=== PATIENT | female | born 1970 | race Caucasian/White ===

== ENCOUNTER 2020-04-28 06:53 | Emergency (ER) | payer SELFPAY ==
[~2020-04-28] VITALS: Ht 157 cm; Wt 52.0 kg
[~2020-04-28 06:53] MED LIST: ALBU8.5H2 IH; ALPR.5T PO; ALPR0.5T7 PO; AMBIEN; AMOX-355 PO; BACL20TA PO; BCP PO; BUTA-234 PO; BUTA1TAB9 PO; CETI10TA17 PO; CHLO500T4 PO; ESCT10T PO; FLUT16SP22 NS; HYDR-3583 PO; HYDR-3729 PO; IBUP-1780 PO; NAPR-243 PO; NF-CYM60C; NITR-65 PO; NORE1TAB95 PO; OMEP40CA27 PO; OXYC-12 PO; OXYC-190 PO; OXYC-471 PO; PRD20T PO; RT-ALBUINH INH; SULF1TAB38 PO; TRAZ150T72; VORT10TA PO; VORT20TA PO
--- OUTSIDE RECORDS SUMMARY | 2020-04-28 07:00 | XMS REPORT ---
Author Author Paty Mott Organization [facility] Address [address] [place] [address] Care Team Providers Care Medical Staff Services Manager Name Role Phone JEREMY Mott Unavailable PROBLEMS Type Condition ICD9-CM Code [id number] Code Onset Dates Condition S tatus SNOMED Code Problem Major depressive disorder, recurrent episode, moderate 296 .32 Active [id number] ALLERGIES No Information ENCOUNTERS Encounter Location Date Diagnosis [place] [address] [address] [facility] [id number] [address] [place] [phone] Jun, Wellness examination Z00.00 [place] [address] [address] [place] [id number] [address] [place] [phone] Dec, [place] [address] [id number] [address] [place] [phone] Dec, [place] [address] [place] [id number] [address] [place] [phone] Dec, [facility] [address] [facility] [id number] [address] [place] [phone] Dec, [place] [address] [address] [place] [id number] [address] [place] [phone] Dec, [place] [address] [address] [facility] [place] [id number] [address] [place] [phone] Dec, IMMUNIZATIONS No Known Immunizations SOCIAL HISTORY Never Assessed REASON FOR VISIT PLAN OF CARE VITAL SIGNS MEDICATIONS No Known Medications RESULTS No Results PROCEDURES Procedure Date Ordered Result Body Site PSYTX PT&/FAMILY 45 MINUTES January 04, 2015 INSTRUCTIONS MEDICATIONS ADMINISTERED No Known Medications MEDICAL (GENERAL) HISTORY Type Description Date Medical History Mild intermittent asthma without complic ation Surgical History lasik Surgical History tubal ligation Surgical History cholecystectomy Surgical History carpal tunnel release Surgical History shoulder arthroscopy Surgical History trigger finger release Surgical History deviated septum repair Hospitalization History asthma/allergies
--- OUTSIDE RECORDS SUMMARY | 2020-04-28 07:00 | XMS REPORT ---
Author Author Paty Mott Organization [facility] Address [address] [place] [address] Care Team Providers Care Commercial Designer Name Role Phone EJREMY Mott Unavailable PROBLEMS Type Condition ICD9-CM Code [id number] Code Onset Dates Condition S tatus SNOMED Code Problem Major depressive disorder, recurrent episode, moderate 296 .32 Active [id number] ALLERGIES No Information ENCOUNTERS Encounter Location Date Diagnosis [facility] [address] [id number] [address] [place] [phone] Jun, Wellness examination Z00.00 [facility] [address] [id number] [address] [place] [phone] Dec, [facility] [address] [id number] [address] [place] [phone] Dec, [facility] [address] [id number] [address] [place] [phone] Dec, [facility] [address] [id number] [address] [place] [phone] Dec, [facility] [address] [id number] [address] [place] [phone] Dec, [facility] [address] [id number] [address] [place] [phone] Dec, IMMUNIZATIONS No Known Immunizations SOCIAL HISTORY Never Assessed REASON FOR VISIT PLAN OF CARE VITAL SIGNS MEDICATIONS No Known Medications RESULTS No Results PROCEDURES No Known procedures INSTRUCTIONS MEDICATIONS ADMINISTERED No Known Medications MEDICAL (GENERAL) HISTORY Type Description Date Medical History Mild intermittent asthma without complic ation Surgical History lasik Surgical History tubal ligation Surgical History cholecystectomy Surgical History carpal tunnel release Surgical History shoulder arthroscopy Surgical History trigger finger release Surgical History deviated septum repair Hospitalization History asthma/allergies
--- OUTSIDE RECORDS SUMMARY | 2020-04-28 07:00 | XMS REPORT ---
Author Author Paty Mott Organization [facility] Address [address] [place] [address] Care Team Providers Care Epic Anesthesia Analyst Name Role Phone JEREMY Mott Unavailable PROBLEMS Type Condition ICD9-CM Code [id number] Code Onset Dates Condition S tatus SNOMED Code Problem Major depressive disorder, recurrent episode, moderate 296 .32 Active [id number] ALLERGIES No Information ENCOUNTERS Encounter Location Date Diagnosis [place] [address] [address] [facility] [id number] [address] [place] [phone] Jun, Wellness examination Z00.00 [place] [address] [place] [id number] [address] [place] [phone] Dec, [place] [address] [id number] [address] [place] [phone] Dec, [place] [address] [place] [id number] [address] [place] [phone] Dec, [facility] [address] [place] [id number] [address] [place] [phone] Dec, [place] [address] [place] [id number] [address] [place] [phone] Dec, [place] [address] [facility] [id number] [address] [place] [phone] Dec, IMMUNIZATIONS No Known Immunizations SOCIAL HISTORY Never Assessed REASON FOR VISIT PLAN OF CARE VITAL SIGNS MEDICATIONS No Known Medications RESULTS No Results PROCEDURES Procedure Date Ordered Result Body Site PSYCH DIAGNOSTIC EVALUATION Dec 10, 2014 INSTRUCTIONS MEDICATIONS ADMINISTERED No Known Medications MEDICAL (GENERAL) HISTORY Type Description Date Medical History Mild intermittent asthma without complic ation Surgical History lasik Surgical History tubal ligation Surgical History cholecystectomy Surgical History carpal tunnel release Surgical History shoulder arthroscopy Surgical History trigger finger release Surgical History deviated septum repair Hospitalization History asthma/allergies
--- OUTSIDE RECORDS SUMMARY | 2020-04-28 07:00 | XMS REPORT ---
Author Author [facility] [employer] Address [address] [address] Care Team Providers Care Accordion Maker Name Role Phone KANDIS GIANG Unavailable NO, LOCAL PHYSICIAN Unavailable Unavailable BROWN, KANDIS Unavailable Unavailable BROWN, KANDIS Unavailable Unavailable BROWN, KANDIS Unavailable Unavailable JEREMY Mott Unavailable JEREMY Mott Unavailable JEREMY Mott Unavailable BROKOB, VIRGEN Unavailable Unavailable BROKOB, VIRGEN Unavailable Unavailable BROKOB, VIRGEN Unavailable Unavailable VILMA, AZRA Unavailable Unavailable VILMA, AZRA Unavailable Unavailable VILMA, AZRA Unavailable Unavailable Unavailable Unavailable Unavailable Unavailable Allergies Normalized Allergy Reported Date of Reaction(s) Care Provider Facility Allergy Type classification allergen Allergy Onset no information Unclassified NO KNOWN DRUG UNKNOWN [facility] (4 sources.) ALLERGIES [facility] ([id number]) Medications The data below is from unstructured sources No Known Medications No Known Medications No Known Medications No Known Medications No Known Medications No Known Medications No Known Medications No Known Medications No Known Medications No Known Medications Problems Problem Normalized Date Last Normalized Normalized Provider Fa cility Classification Problem(s) Recorded Problem Problem Sta tus Duration Anxiety Anxiety Chronic Active [facility] disorders (8 disorder, [facility] sources.) unspecified [place] Translations: [facility] ([id number]) [ ANXIETY STATE, UNSPECIFIED] Spondylosis; Low back pain Episodic Active [facility] intervertebral Translations: [facility] disc [ LUMBAGO] [place] disorders; [facility] ([id number]) other back problems (4 sources.) Residual Tobacco use Episodic Active [place] Hospit al codes; [facility] unclassified [place] (2 sources.) [facility] ([id number]) Substance-rela Tobacco use Chronic Active [facility] jonas disorders disorder [facility] (2 sources.) [facility] ([id number]) Procedures The data below is from unstructured sourcesNo known history of procedures. No Known procedures No Known procedures Immunizations The data below is from unstructured sourcesNo immunization records.No immunization records.No immunization records.No immunization records.No immunization records.No immunization records.No immunization records. No Known Immunizations No Known Immunizations No Known Immunizations No Known Immunizations No Known Immunizations No Known Immunizations Results The data below is from unstructured sourcesNo known relevant diagnostic tests, laboratory data and/or discharge summary. No Results No Results No Results No Results No Results No Results Vital Signs The data below is from unstructured sources Vital Response Date/Time Temperature (Fahrenheit) 98.1 degree s F (97.6 - 99.5) 06/23/2016 2:00pm Temperature (Calculated Celsius) 36. 01857 degrees C (36.4 - 37.5) 06/23/2016 2:00pm Temperature Source Tympanic 06/23/2016 2:00pm Pulse Rate (adult) 99 bpm (60 - 90) 06/23/2016 2:00pm Respiratory Rate 18 bpm (12 - 24) 06/23/2016 2:00pm O2 Sat by Pulse Oximetry 97 % (88 - 100) 06/23/2016 2:00pm Blood Pressure 146/72 mm Hg 06/23/2016 2:00pm Blood Pressure Mean 96 mm Hg 06/23/2016 2:00pm Pain Numeric Pain Scale 0-No Pain 06/23/2016 2:00pm Height (Feet) 5 feet 7:32pm Height (Inches) 3.00 inches 06/20/2016 7:32pm Height (Calculated Centimeters) 160. 514272 cm 06/20/2016 7:32pm Weight (Pounds) 115 pounds 06/20/2016 7:32pm Weight (Ounces) 0.0 oz 0 06/20/2016 7:32pm Weight (Calculated Grams) 72619.12 gm 06/20/2016 7:32pm Weight (Calculated Kilograms) 52.163 123 kilograms 06/20/2016 7:32pm Calculated BMI 20.4 06/02 7:32pm Capillary Refill Capillary Refill Less Than 3 Seconds 06/22/2016 8:00am Vital Response Date/Time Pulse Rate (adult) 94 bpm (60 - 90) 03/20/2016 9:13am O2 Sat by Pulse Oximetry 99 % (88 - 100) 03/20/2016 9:13am Blood Pressure 141/102 mm Hg 03/20/2016 9:13am Height (Feet) 5 feet 9:35am Height (Inches) 2.00 inches 03/20/2016 9:35am Height (Calculated Centimeters) 157. 605440 cm 03/20/2016 9:35am Weight (Pounds) 115 pounds 03/20/2016 9:35am Weight (Ounces) 0.0 oz 0 03/20/2016 9:35am Weight (Calculated Grams) 26707.123 gm 03/20/2016 9:35am Weight (Calculated Kilograms) 52.163 123 kilograms 03/20/2016 9:35am Calculated BMI 21.0 03/02 9:35am Vital Response Date/Time Temperature (Fahrenheit) 97.7 degree s F (97.6 - 99.5) 03/27/2016 1:00pm Temperature (Calculated Celsius) 36. 94193 degrees C (36.4 - 37.5) 03/27/2016 12:45pm Temperature Source Temporal 03/27/2016 1:00pm Pulse Rate (adult) 72 bpm (60 - 90) 03/27/2016 1:00pm Respiratory Rate 16 bpm (12 - 24) 03/27/2016 1:00pm O2 Sat by Pulse Oximetry 98 % (88 - 100) 03/27/2016 1:00pm Blood Pressure 144/95 mm Hg 03/27/2016 1:00pm Pain Pain Intensity 5 2015 12:45pm Height (Feet) 5 feet 8:55am Height (Inches) 2.00 inches 03/27/2016 8:55am Height (Calculated Centimeters) 157. 343779 cm 03/27/2016 8:55am Weight (Pounds) 115 pounds 03/27/2016 8:55am Weight (Ounces) 0.0 oz 0 03/27/2016 8:55am Weight (Calculated Grams) 74862.123 gm 03/27/2016 8:55am Weight (Calculated Kilograms) 52.163 123 kilograms 03/27/2016 8:55am Calculated BMI 19.13 8:55am Vital Response Date/Time Temperature (Fahrenheit) 97.9 degree s F (97.6 - 99.5) Temperature (Calculated Celsius) 36. 06487 degrees C (36.4 - 37.5) Temperature Source Temporal Pulse Rate (adult) 59 bpm (60 - 90) Respiratory Rate 16 bpm (12 - 24) O2 Sat by Pulse Oximetry 99 % (88 - 100) Blood Pressure 128/64 mm Hg Pain Pain Intensity 4 Height (Feet) 5 feet Height (Inches) 2.00 inches Height (Calculated Centimeters) 157. 473571 cm Weight (Pounds) 108 pounds Weight (Ounces) 0.0 oz Weight (Calculated Grams) 24549.976 gm Weight (Calculated Kilograms) 48.987 976 kilograms Calculated BMI 17.97 Interventions No Information Plan of Treatment The data below is from unstructured sources Discharge Date 06/23/16 2:45pm Disposition 01 HOME, SELF-CARE Instructions/Education Provided Acut e Abdominal Pain (ED) Prescriptions See Medication Section Referrals KANDIS GIANG MD (Unspec ified) - 06/30/16 Address: [facility] [address] [address] Reason(s) for Referral: APPT AT 3:30PM Care Plan and Goals See Discharge In structions Section Discharge Date 03/20/16 10:15am Prescriptions See Medication Section Discharge Date 03/27/16 1:00pm Instructions/Education Provided CHARLES THESIA INSTRUCTIONS POSTOP DR. SHARMA-SINUS SURGERY DR. SHARMA-NASAL IRRIGATION Prescriptions See Medication Section Goals No Information Social History No Information Functional Status The data below is from unstructured sources Query Response Date Elijah rded Patient Orientation Person Place Time Situation Eyes Open June 23, 2016 2:50pm Comprehension Ability Understands Co ncepts June 22, 2016 8:00pm Mental Status No Information Encounters Encounter Normalized Encounter Encounter Diagnosis Care Provi deandra Organization Date Type 08-10-2018 Patient encounter no information no name no or ganization name - procedure 08-11-2018 12-20-2017 Patient encounter no information no name no or ganization name - procedure 12-21-2017 03-05-2017 Patient encounter no information no name no or ganization name - procedure 03-06-2017 01-29-2017 Patient encounter no information no name no or ganization name - procedure 01-30-2017 01-14-2017 Patient encounter no information no name no or ganization name - procedure 01-15-2017 Medical Equipment No Information Payers Normalized Payer Value Self-pay no information Medicaid no information Advance Directives Directive Response Recor ded Date/Time Advance Directives No 7:21pm Health Care Power of Sorting And Folding Supervisor No 06/20/16 7:21pm Organ Donor Yes 06/20/16 7:21pm Resuscitation Status Full Code 06/20/16 7:21pm Directive Response Recor ded Date/Time Advance Directives No 9:13am Health Care Power of Sorting And Folding Supervisor No 03/20/16 9:13am Organ Donor Yes 03/20/16 9:13am Resuscitation Status Full Code 03/20/16 9:13am Directive Response Recor ded Date/Time Advance Directives No 8:55am Health Care Power of Sorting And Folding Supervisor No 03/27/16 8:55am Organ Donor Yes 03/27/16 8:55am Resuscitation Status Full Code 03/27/16 8:55am Directive Response Recor ded Date/Time Advance Directives No 10:00am Health Care Power of Sorting And Folding Supervisor No 05/31/15 10:00am Organ Donor Yes 05/31/15 10:00am Resuscitation Status Full Code 05/31/15 10:00am Discharge Instructions Patient Instructions Physician Instructions New, Converted or Re-Newed RX: Transmitted to Pharmacy Plan of Care/Instructions/FU: Take Macrobid twice daily for the next 10 days. Plenty of fluids. Activity as Tolerated: Yes Goal: Passage of remaining stone Clearance of urinary tract infection Discharge Diet: No Restrictions Return to The Hospital For: Recurrent pain/fever Other Inst to Patient Appointment to see Dr. Giang with UA in 1 week Pneu Vac Indicated: Yes Care Plan Patient Instructions:: Take Macrobid twice daily for the next 10 days.Plenty of fluids. Goal:: Passage of remaining stoneClearance of urinary tract infection No hospital discharge instructions.No hospital discharge instructions.No hospital discharge instructions. Additional Source Comments This clinical document has been generated using [employer] software that has been certified by the Office of the National Coordinator for Health Information Technology (ONC 15.99.04.3023.Diam.31.00.0.531417) and the National Committee for Gas Station Operator (NCQA, as an eMeasure certified technology). FOR RECORDS PERTAINING TO PATIENTS WHO ARE OR HAVE BEEN ENROLLED IN A CHEMICAL D EPENDENCY/SUBSTANCE ABUSE PROGRAM, SOME INFORMATION MAY BE OMITTED. This clinica l summary was aggregated from multiple sources. Caution should be exercised in using it in the provision of clinical care. This summary normalizes information from multiple sources, and as a consequence, information in this document may ma terially change the coding, format and clinical context of patient data. In moraima tion, data may be omitted in some cases. CLINICAL DECISIONS SHOULD BE BASED ON T HE PRIMARY CLINICAL RECORDS. [employer] provides no warranty or guara ntee of the accuracy or completeness of information in this document.The followi ng information is based on time limited clinical information UNRECOGNIZED CONTENT PROVIDED BELOW FOR UNRECOGNIZED SECTION MEDICAL (GENERAL) HISTORY Type Description Date Medical History Mild intermittent as thma without complication Surgical History lasik Surgical History tubal ligation Surgical History cholecystectomy Surgical History carpal tunnel release Surgical History shoulder arthroscopy Surgical History trigger finger release Surgical History deviated septum repair Hospitalization History asthma/allergies
--- OUTSIDE RECORDS SUMMARY | 2020-04-28 07:00 | XMS REPORT | Continuity of Care Document ---
Author Organization Unknown Address Unknown Phone Unavailable Allergies Active Description Code Type Severity Reaction Onset Reported/Identified Relationship to Patient Clinical Status Yes NO KNOWN DRUG ALLERGIES UNKNOWN UNKNOWN Yes NKANo Known Allergies NKA Miscellaneous Allergy Unknown N/A 09/29/2008 Medications There is no data. Problems Date Dx Coded Attending Type Code Diagnosis Diagnosed By 04/02/2010 Ot 831.04 04/02/2010 Ot 959.2 04/02/2010 Ot E000.8 04/02/2010 Ot E030 04/02/2010 Ot E849.4 04/02/2010 Ot E885.9 04/29/2010 Ot 831.04 04/29/2010 Ot E000.8 04/29/2010 Ot E002.0 04/29/2010 Ot E888.9 04/29/2010 Ot V57.1 01/28/2011 Ot 718.31 REC UR DISLOCAT- SHLDER 01/28/2011 Ot 727.43 RACHEL GLION NOS 09/23/2012 Ot 682.4 CELL ULITIS OF HAND 09/23/2012 Ot 729.5 PAIN IN LIMB 09/23/2012 Ot E000.8 OTH ER EXTERNAL CAUSE STATUS 09/23/2012 Ot E849.0 ACC IDENT IN HOME 09/23/2012 Ot E906.0 DOG BITE 11/22/2014 Ot 727.43 11/22/2014 Ot 831.04 11/22/2014 Ot E000.8 11/22/2014 Ot E928.9 11/22/2014 Ot V72.83 11/22/2014 Ot V74.8 11/22/2014 Ot V76.12 11/22/2014 Ot 211.3 11/22/2014 Ot 558.9 11/22/2014 Ot 569.3 11/22/2014 Ot V72.84 11/22/2014 Ot 793.89 11/22/2014 Ot V76.12 11/22/2014 Ot 793.89 12/04/2014 DIONICIO SCOTT MD Ot 723.4 12/05/2014 DIONICIO SCOTT MD Ot 723.4 12/10/2014 KAYLYNN MARTÍNEZ, JEREMY Avendano 296.32 MO DEPRESSIVE RECURRENT MODERATE 12/13/2014 RORO WATERMAN Ot 789.0 3 12/19/2014 DIONICIO SCOTT MD Ot 723.4 12/25/2014 RORO WATERMAN Ot 789.0 3 05/31/2015 DIONICIO SCOTT MD Ot 354.0 CARPAL TUNNEL SYNDROME 09/17/2015 DIONICIO SCOTT MD Ot M75.121 09/17/2015 DIONICIO SCOTT MD Ot M75.122 02/28/2016 Ot 727.43 RACHEL GLION NOS 02/28/2016 Ot 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 02/28/2016 Ot E000.8 OTH ER EXTERNAL CAUSE STATUS 02/28/2016 Ot E928.9 ACC IDENT NOS 02/28/2016 Ot V72.83 EXA M PRE- OPERATIVE NEC 02/28/2016 Ot V74.8 SCRE EN-BACTERIAL DIS NEC 02/28/2016 Ot V76.12 OTH SCREEN MAMMO- MALIGN NEOPLASM OF AGUILAR 02/28/2016 Ot 211.3 KETAN GN NEOPLASM LG BOWEL 02/28/2016 Ot 558.9 JEWELL NF GASTROENTERIT NEC 02/28/2016 Ot 569.3 RECT AL ANAL HEMORRHAGE 02/28/2016 Ot V72.84 EXA M PRE- OPERATIVE NOS 02/28/2016 Ot 793.89 OTH (ABN) FINDINGS ON RADIOLOGICAL EXAMI 02/28/2016 Ot V76.12 OTH SCREEN MAMMO- MALIGN NEOPLASM OF AGUILAR 02/28/2016 Ot 793.89 OTH (ABN) FINDINGS ON RADIOLOGICAL EXAMI 02/28/2016 DIONICIO SCOTT MD Ot 723.4 BRACHIAL NEURITIS NOS 02/28/2016 RORO WATERMAN Ot 789.0 3 ABDOMINAL PAIN, RIGHT LOWER QUADRANT 02/28/2016 DIOMEDES SANTIZO Ot 610.0 SOLITARY CYST OF BREAST 02/28/2016 DIONICIO SCOTT MD Ot 354.0 CARPAL TUNNEL SYNDROME 02/28/2016 DIONICIO SCOTT MD Ot V72.84 EXAM PRE-OPERATIVE NOS 02/28/2016 TYLER VINCENT, DIONICIO Meyers Ot M75.121 COMPLETE ROTATR-CUFF TEAR/RUPTR OF R JARAD 02/28/2016 DIONICIO SCOTT MD Ot M75.122 COMPLETE ROTATR-CUFF TEAR/RUPTR OF LEFT 03/02/2016 EDITH VINCENT, DIONICIO Meyers Ot J32 .9 CHRONIC SINUSITIS, UNSPECIFIED 03/02/2016 EDITH VINCENT, DIONICIO P Ot R51 HEADACHE 03/02/2016 DIONICIO SHARMA MD Ot J32 .9 CHRONIC SINUSITIS, UNSPECIFIED 03/02/2016 EDITH VINCENT, DIONICIO P Ot R51 HEADACHE 03/04/2016 EDITH VINCENT, DIONICIO Meyers Ot J32 .9 CHRONIC SINUSITIS, UNSPECIFIED 03/04/2016 EDITH VINCENT, DIONICIO P Ot R51 HEADACHE 03/04/2016 DIONICIO SHARMA MD Ot J32 .9 CHRONIC SINUSITIS, UNSPECIFIED 03/04/2016 EDITH VINCENT, DIONICIO P Ot R51 HEADACHE 03/17/2016 DIONICIO SHARMA MD P Ot J32 .9 CHRONIC SINUSITIS, UNSPECIFIED 03/17/2016 DIONICIO SHARMA MD P Ot R51 HEADACHE 03/20/2016 DIONICIO SHARMA MD P Ot J32 .9 CHRONIC SINUSITIS, UNSPECIFIED 03/20/2016 DIONICIO SHARMA MD Ot J34 .2 DEVIATED NASAL SEPTUM 03/20/2016 DIONICIO SHARMA MD Ot Z01.812 ENCOUNTER FOR PREPROCEDURAL LABORATORY E 03/20/2016 DIONICIO SHARMA MD Ot Z01.818 ENCOUNTER FOR OTHER PREPROCEDURAL EXAMIN 03/20/2016 DIONICIO SHARMA MD Ot Z11 .2 ENCOUNTER FOR SCREENING FOR OTHER BACTER 03/27/2016 DIONICIO SHARMA MD Ot J32 .9 CHRONIC SINUSITIS, UNSPECIFIED 03/27/2016 DIONICIO SHARMA MD Ot J34 .2 DEVIATED NASAL SEPTUM 06/23/2016 JENN GREENE MD Ot B96. 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 9 ANXIETY DISORDER, UNSPECIFIED 06/23/2016 JENN GREENE MD Ot G43.909 MIGRAINE, UNSP, NOT INTRACTABLE, WITHOUT 06/23/2016 JENN GREENE MD, Ot J45.909 UNSPECIFIED ASTHMA, UNCOMPLICATED 06/23/2016 JENN GREENE MD Ot K21. 9 GASTRO-ESOPHAGEAL REFLUX DISEASE WITHOUT 06/23/2016 JENN GREENE MD Ot N13. 2 HYDRONEPHROSIS WITH RENAL AND URETERAL C 06/23/2016 JENN GREENE MD, Ot N85. 2 HYPERTROPHY OF UTERUS 12/20/2017 W 300.00 ANX IETY STATE, UNSPECIFIED 12/20/2017 W F41.9 ANXI ETY DISORDER, UNSPECIFIED 08/10/2018 W 300.00 ANX IETY STATE, UNSPECIFIED 08/10/2018 W 305.1 TOBA [employer] USE DISORDER 08/10/2018 W 724.2 LUMBAGO 08/10/2018 W F41.9 ANXI ETY DISORDER, UNSPECIFIED 08/10/2018 W M54.5 LOW BACK PAIN 08/10/2018 W Z72.0 [employer]BA [employer] USE Procedures Code Description [place] [address] PS H DIAGNOSTIC EVALUATION 12/10/2014 Results Test Result Range Comprehensive metabolic panel - 06/20/16 16:22 Serum or plasma sodium measurement (moles/volume) 133 mmol/L 135-145 Serum or plasma potassium measurement (moles/volume) 3.8 mmol/L 3.6-5.0 Serum or plasma chloride measurement (moles/volume) 102 mmol/L 98-107 Carbon dioxide 22 mmol/L 21-32 Serum or plasma anion gap determination (moles/volume) 9 mmol/L 5-14 Serum or plasma urea nitrogen measurement (mass/volume ) 8 mg/dL 7-18 Serum or plasma creatinine measurement (mass/volume) 0.71 mg/dL 0.60-1.30 Serum or plasma urea nitrogen/creatinine mass ratio 11 NRG Serum or plasma creatinine measurement w ith calculation of estimated glomerular filtration rate > NRG Serum or plasma glucose measurement (mass/volume) 99 mg/dL 70-105 Serum or plasma calcium measurement (mass/volume) 8.7 mg/dL 8.5-10.1 Serum or plasma total bilirubin measurement (mass/volu me) 0.6 mg/dL 0.1-1.0 Serum or plasma alkaline phosphatase channing surement (enzymatic activity/volume) 97 U/L 40-136 Serum or plasma aspartate aminotransfera se measurement (enzymatic activity/volume) 19 U/L 5-34 Serum or plasma alanine aminotransferase measurement (enzymatic activity/volume) 19 U/L 0-55 Serum or plasma protein measurement (mass/volume) 6.3 g/dL 6.4-8.2 Serum or plasma albumin measurement (mass/volume) 3.8 g/dL 3.2-4.5 Serum or plasma ethanol measurement (mas s/volume) - 06/20/16 16:22 Serum or plasma ethanol measurement (mass/volume) < mg/dL <10 Complete blood count (CBC) with automate d white blood cell (WBC) differential - 06/20/16 16:22 Blood leukocytes automated count (number/volume) 22.6 10*3/uL 4.3-11.0 Blood erythrocytes automated count (number/volume) 4.19 10*6/uL 4.35-5.85 Venous blood hemoglobin measurement (mass/volume) 14.1 g/dL 11.5-16.0 Blood hematocrit (volume fraction) 41 % 35-52 Automated erythrocyte mean corpuscular volume 97 [ foz_us] 80-99 Automated erythrocyte mean corpuscular h emoglobin (mass per erythrocyte) 34 pg 25-34 Automated erythrocyte mean corpuscular h emoglobin concentration measurement (mass/volume) 35 g/dL 32-36 Automated erythrocyte distribution width ratio 11. 9 % 10.0- 14.5 Automated blood platelet count (count/volume) 240 10*3/uL 130-400 Automated blood platelet mean volume measurement 9.8 [foz_us] 7.4-10.4 Automated blood neutrophils/100 leukocytes 90 % 42-75 Automated blood lymphocytes/100 leukocytes 3 % 12-44 Blood monocytes/100 leukocytes 6 % 0-12 Automated blood eosinophils/100 leukocytes 0 % 0-10 Automated blood basophils/100 leukocytes 0 % 0-10 Blood neutrophils automated count (number/volume) 20.4 10*3 1.8-7.8 Blood lymphocytes automated count (number/volume) 0.7 10*3 1.0-4.0 Blood monocytes automated count (number/volume) 1. 4 10*3 0.0-1.0 Automated eosinophil count 0.0 10*3/uL 0 .0-0.3 Automated blood basophil count (count/volume) 0.0 10*3/uL 0.0-0.1 Blood manual differential performed dete ction - 06/20/16 16:22 Blood monocytes/100 leukocytes 6 % NRG Manual blood segmented neutrophils/100 leukocytes 92 % NRG Blood band neutrophils/100 leukocytes 0 % NRG Manual blood lymphocytes/100 leukocytes 2 % NRG Manual eosinophils/100 leukocytes in nose 0 % NRG Manual blood basophils/100 leukocytes 0 % NRG Blood erythrocyte morphology finding identification NORMAL NRG Complete urinalysis with reflex to cultu re - 06/20/16 16:57 Urine color determination YELLOW NRG Urine clarity determination VERY CLOUDY NRG Urine pH measurement by test strip 7 5-9 Specific gravity of urine by test strip 1.010 1.016-1.022 Urine protein assay by test strip, semi-quantitative 3+ NEGATIVE Urine glucose detection by automated test strip NE GATIVE NEGATIVE Erythrocytes detection in urine sediment by light micr oscopy 5+ NEGATIVE Urine ketones detection by automated test strip NE GATIVE NEGATIVE Urine nitrite detection by test strip POSITIVE NEGATIVE Urine total bilirubin detection by test strip NEGA TIVE NEGATIVE Urine urobilinogen measurement by automated test strip (mass/volume) NORMAL NORMAL Urine leukocyte esterase detection by dipstick 3+ NEGATIVE Automated urine sediment erythrocyte cou nt by microscopy (number/high power field) [HPF] NRG Automated urine sediment leukocyte count by microscopy (number/high power field) > [HPF] NRG Bacteria detection in urine sediment by light microsco py MODERATE NRG Squamous epithelial cells detection in u rine sediment by light microscopy 5-10 NRG Crystals detection in urine sediment by light microsco py NONE NRG Casts detection in urine sediment by light microscopy NONE NRG Mucus detection in urine sediment by light microscopy NEGATIVE NRG Complete urinalysis with reflex to culture YES NRG Urine drug screening test - 06/20/16 16: 57 Urine acetaminophen detection by screening method NEGATIVE NEGATIVE Urine phencyclidine detection by screening method NEGATIVE NEGATIVE Urine benzodiazepines detection by screening method POSITIVE NEGATIVE Urine cocaine detection NEGATIVE NEGATI VE Urine amphetamines detection by screening method P OSITIVE NEGATIVE Urine methamphetamine detection by screening method POSITIVE NEGATIVE Urine cannabinoids detection by screening method N EGATIVE NEGATIVE Urine opiates detection by screening method NEGATI VE NEGATIVE Urine barbiturates detection POSITIVE N EGATIVE Screening urine tricyclic antidepressants detection NEGATIVE NEGATIVE Urine methadone detection by screening method NEGA TIVE NEGATIVE Bacterial urine culture - 06/20/16 16:57 Bacterial urine culture [id number] NRG COLONY COUNT >100,000/ML NRG FTX;REPORTABLE SENSITIVITY REPORTED 06/21/16 16:40 NRG URINE CULTURE RESULTS PLUS NRG FREE TEXT ENTRY 2 UNUSUAL RESISTANCE PATTERN, ESBL NRG FREE TEXT ENTRY 3 IDENTIFIED NRG Bacterial susceptibility panel - 6 16:57 Gentamicin susceptibility test by minimum inhibitory c oncentration >= NRG Trimethoprim/sulfamethoxazole susceptibi lity test by minimum inhibitoryconcentration >= NRG Ampicillin susceptibility test by minimum inhibitory c oncentration >= NRG Tobramycin susceptibility test by minimum inhibitory c oncentration >= NRG Cefazolin susceptibility test by minimum inhibitory co ncentration >= NRG Ceftriaxone susceptibility test by minimum inhibitory concentration >= NRG Ampicillin/sulbactam susceptibility test by minimum inhibitory concentration >= NRG Ciprofloxacin susceptibility test by minimum inhibitor y concentration >= NRG Meropenem susceptibility test by minimum inhibitory co ncentration <= NRG Nitrofurantoin susceptibility test by mi nimum inhibitory concentration <= NRG Aztreonam susceptibility test by minimum inhibitory co ncentration >= NRG Extended spectrum beta lactamase (ESBL) producing bacteria susceptibility test by minimum inhibitory concentration + NRG Cefepime susceptibility test by minimum inhibitory con centration R NRG Amikacin susceptibility test by minimum inhibitory con centration 8 NRG Blood lactic acid measurement (moles/vol ume) - 06/20/16 17:15 Blood lactic acid measurement (moles/volume) 1.0 m mol/L 0.5- 2.0 Bacterial blood culture - 06/20/16 17:15 Bacterial blood culture NG NRG Bacterial blood culture - 06/20/16 17:20 Bacterial blood culture NG NRG Complete blood count (CBC) with automate d white blood cell (WBC) differential - 06/21/16 04:34 Blood leukocytes automated count (number/volume) 24.7 10*3/uL 4.3-11.0 Blood erythrocytes automated count (number/volume) 3.65 10*6/uL 4.35-5.85 Venous blood hemoglobin measurement (mass/volume) 12.2 g/dL 11.5-16.0 Blood hematocrit (volume fraction) 36 % 35-52 Automated erythrocyte mean corpuscular volume 98 [ foz_us] 80-99 Automated erythrocyte mean corpuscular h emoglobin (mass per erythrocyte) 33 pg 25-34 Automated erythrocyte mean corpuscular h emoglobin concentration measurement (mass/volume) 34 g/dL 32-36 Automated erythrocyte distribution width ratio 12. 0 % 10.0- 14.5 Automated blood platelet count (count/volume) 179 10*3/uL 130-400 Automated blood platelet mean volume measurement 10.3 [foz_us] 7.4-10.4 Automated blood neutrophils/100 leukocytes 88 % 42-75 Automated blood lymphocytes/100 leukocytes 5 % 12-44 Blood monocytes/100 leukocytes 7 % 0-12 Automated blood eosinophils/100 leukocytes 0 % 0-10 Automated blood basophils/100 leukocytes 0 % 0-10 Blood neutrophils automated count (number/volume) 21.7 10*3 1.8-7.8 Blood lymphocytes automated count (number/volume) 1.2 10*3 1.0-4.0 Blood monocytes automated count (number/volume) 1. 8 10*3 0.0-1.0 Automated eosinophil count 0.0 10*3/uL 0 .0-0.3 Automated blood basophil count (count/volume) 0.0 10*3/uL 0.0-0.1 Complete blood count (CBC) with automate d white blood cell (WBC) differential - 06/22/16 04:20 Blood leukocytes automated count (number/volume) 18.0 10*3/uL 4.3-11.0 Blood erythrocytes automated count (number/volume) 3.51 10*6/uL 4.35-5.85 Venous blood hemoglobin measurement (mass/volume) 11.6 g/dL 11.5-16.0 Blood hematocrit (volume fraction) 35 % 35-52 Automated erythrocyte mean corpuscular volume 99 [ foz_us] 80-99 Automated erythrocyte mean corpuscular h emoglobin (mass per erythrocyte) 33 pg 25-34 Automated erythrocyte mean corpuscular h emoglobin concentration measurement (mass/volume) 34 g/dL 32-36 Automated erythrocyte distribution width ratio 12. 4 % 10.0- 14.5 Automated blood platelet count (count/volume) 134 10*3/uL 130-400 Automated blood platelet mean volume measurement 9.8 [foz_us] 7.4-10.4 Automated blood neutrophils/100 leukocytes 89 % 42-75 Automated blood lymphocytes/100 leukocytes 7 % 12-44 Blood monocytes/100 leukocytes 4 % 0-12 Automated blood eosinophils/100 leukocytes 0 % 0-10 Automated blood basophils/100 leukocytes 0 % 0-10 Blood neutrophils automated count (number/volume) 16.0 10*3 1.8-7.8 Blood lymphocytes automated count (number/volume) 1.3 10*3 1.0-4.0 Blood monocytes automated count (number/volume) 0. 7 10*3 0.0-1.0 Automated eosinophil count 0.0 10*3/uL 0 .0-0.3 Automated blood basophil count (count/volume) 0.0 10*3/uL 0.0-0.1 Complete blood count (CBC) with automate d white blood cell (WBC) differential - 06/23/16 05:00 Blood leukocytes automated count (number/volume) 7.2 10*3/uL 4.3-11.0 Blood erythrocytes automated count (number/volume) 3.19 10*6/uL 4.35-5.85 Venous blood hemoglobin measurement (mass/volume) 10.7 g/dL 11.5-16.0 Blood hematocrit (volume fraction) 31 % 35-52 Automated erythrocyte mean corpuscular volume 96 [ foz_us] 80-99 Automated erythrocyte mean corpuscular h emoglobin (mass per erythrocyte) 34 pg 25-34 Automated erythrocyte mean corpuscular h emoglobin concentration measurement (mass/volume) 35 g/dL 32-36 Automated erythrocyte distribution width ratio 12. 0 % 10.0- 14.5 Automated blood platelet count (count/volume) 112 10*3/uL 130-400 Automated blood platelet mean volume measurement 10.1 [foz_us] 7.4-10.4 Automated blood neutrophils/100 leukocytes 83 % 42-75 Automated blood lymphocytes/100 leukocytes 10 % 12-44 Blood monocytes/100 leukocytes 7 % 0-12 Automated blood eosinophils/100 leukocytes 0 % 0-10 Automated blood basophils/100 leukocytes 0 % 0-10 Blood neutrophils automated count (number/volume) 6.0 10*3 1.8-7.8 Blood lymphocytes automated count (number/volume) 0.7 10*3 1.0-4.0 Blood monocytes automated count (number/volume) 0. 5 10*3 0.0-1.0 Automated eosinophil count 0.0 10*3/uL 0 .0-0.3 Automated blood basophil count (count/volume) 0.0 10*3/uL 0.0-0.1 Comprehensive metabolic panel - 06/23/16 05:00 Serum or plasma sodium measurement (moles/volume) 136 mmol/L 135-145 Serum or plasma potassium measurement (moles/volume) 2.8 mmol/L 3.6-5.0 Serum or plasma chloride measurement (moles/volume) 106 mmol/L 98-107 Carbon dioxide 20 mmol/L 21-32 Serum or plasma anion gap determination (moles/volume) 10 mmol/L 5-14 Serum or plasma urea nitrogen measurement (mass/volume ) 5 mg/dL 7-18 Serum or plasma creatinine measurement (mass/volume) 0.61 mg/dL 0.60-1.30 Serum or plasma urea nitrogen/creatinine mass ratio 8 NRG Serum or plasma creatinine measurement w ith calculation of estimated glomerular filtration rate > NRG Serum or plasma glucose measurement (mass/volume) 106 mg/dL 70-105 Serum or plasma calcium measurement (mass/volume) 8.1 mg/dL 8.5-10.1 Serum or plasma total bilirubin measurement (mass/volu me) 0.2 mg/dL 0.1-1.0 Serum or plasma alkaline phosphatase channing surement (enzymatic activity/volume) 82 U/L 40-136 Serum or plasma aspartate aminotransfera se measurement (enzymatic activity/volume) 37 U/L 5-34 Serum or plasma alanine aminotransferase measurement (enzymatic activity/volume) 49 U/L 0-55 Serum or plasma protein measurement (mass/volume) 5.0 g/dL 6.4-8.2 Serum or plasma albumin measurement (mass/volume) 2.8 g/dL 3.2-4.5 Sed Rate - 01/29/17 17:15 Sed Rate 5 mm/hr 9-15 Thyroid Stimulating Hormone - 01/29/17 1 7:15 TSH 1.29 mIU/mL 0.32-5.00 Encounters ACCT No. Visit Date/Time Discharge Status Pt. Type Provider Facility Loc./Unit Complaint [id number] 12/10/2014 10:54:00 12/10/2014 23:59: 59 CLS Outpatient JEREMY BOOTH [id number] 03/05/2017 11:13:00 03/05/2017 23:59: 00 DIS Outpatient BRAYDEN YAO [id number] 01/29/2017 17:15:00 01/29/2017 23:59: 00 DIS Outpatient Reji Giang [id number] 01/14/2017 15:47:00 01/14/2017 23:59: 00 DIS Outpatient Reji Giang [id number] 08/10/2018 13:58:00 Document Registration [id number] 12/20/2017 10:06:00 Document Registration [id number] 06/20/2016 18:06:00 14:45:00 DIS Inpatient JC VINCENT, JENN Craig [facility] 4TH PYELONEPHRITIS,RECENT L EFT URETERAL STARE [id number] 03/27/2016 08:20:00 13:00:00 DIS Outpatient DIONICIO SHARMA MD [facility] [id number] 03/20/2016 09:10:00 016 10:15:00 DIS Outpatient DIONICIO SHARMA MD [facility] PREOP [id number] 02/28/2016 10:14:00 016 23:59:59 CLS Outpatient DIONICIO SHARMA MD [facility] RAD [id number] 08/26/2015 16:15:00 23:59:59 CLS Outpatient DIONICIO SCOTT MD [facility] RAD [id number] 05/31/2015 09:22:00 13:55:00 DIS Outpatient DIONICIO SCOTT MD [facility] [id number] 05/30/2015 09:21:00 23:59:59 CLS Outpatient DIONICIO SCOTT MD [facility] PREOP [id number] 12/12/2014 10:29:00 015 23:59:59 CLS Outpatient DIOMEDES SANTIZO [facility] RAD [id number] 12/12/2014 10:22:00 23:59:59 CLS Outpatient RORO WATERMAN [facility] RAD [id number] 12/03/2014 11:09:00 015 23:59:59 CLS Outpatient TYLER VINCENT, DIONICIO Meyers [facility] RAD [id number] 04/28/2020 06:55:[address] Emergency LYUDMILA VINCENT, IRWIN Kiran [facility] ER R SIDE ABD PAIN [id number] 11/21/2012 07:52:00 Document Registration [id number] 10/31/2012 10:10:00 Document Registration [id number] 09/23/2012 20:29:00 Document Registration [id number] 06/17/2012 11:55:00 Document Registration [id number] 06/16/2012 07:18:00 Document Registration [id number] 10/30/2011 09:15:00 Document Registration [id number] 01/28/2011 05:44:00 Document Registration [id number] 01/20/2011 08:42:00 Document Registration [id number] 04/14/2010 11:06:00 Document Registration [id number] 04/02/2010 06:20:00 Document Registration
--- NOTE | 2020-04-28 07:25 | ED Abdominal Pain ---
General Chief Complaint: Abdominal/GI Problems Stated Complaint: R SIDE ABD PAIN Source of Information: Patient Exam Limitations: No Limitations (VANNESA CAPUTO,) History of Present Illness Date Seen by Provider: Apr 28, 2020 Time Seen by Provider: 07:05 Initial Comments Ms. Vogel is here to ER regarding abdominal and back pain that started 1 day ago (04/27). She says the pain has been increasing and for the last few hours she hasn't been able to breathe. She localizes the pain to the RLQ and R flank. She states the pain is sharp and rates it a 12-13/10 on the pain scale. She does not note anything that improves the pain, but notices it is worse when moving, laying down, breathing, and during her car ride to the ER. She denies any nausea, vomiting, change in bowel movements, or blood in her urine. Her last bowel movement was between 2474-9810 last night and she says it was normal. She does admit to chest pain 1 hour prior to arrival, but when localized, she points to her mid back. She also admits to shortness of breath relating to the pain only. She also admits to blurry vision that is attributed to lack of sleep overnight. Her last meal was 2 hours ago. Timing/Duration: 24 Hours Severity/Quality: Severe Location: RLQ Radiation: Back, Chest (localized to mid upper back) Modifying Factors: Improves With Analgesics (did not help much); Worsens With Breathing, Worsens With Lying down, Worsens With Movement, Worsens With Urinating Associated Symptoms: No Nausea/Vomiting, No Shortness of Air, No Weakness (VANNESA CAPUTO,) Allergies and Home Medications Allergies Coded Allergies: NKANo Known Allergies (Verified Allergy, Unknown, 09/29/08) Home Medications Albuterol Sulfate 8.5 Gm Hfa.aer.ad, 2 PUFF INH Q4H PRN for SHORTNESS OF BREATH, (Reported) Alprazolam 0.5 Mg Tablet, 0.5 MG PO TID PRN for ANXIETY, (Reported) Baclofen 20 Mg Tablet, 20 MG PO TID PRN for MUSCLE SPASMS, (Reported) Butalb/Acetaminophen/Caffeine 1 Each Tablet, 1-2 TAB PO BID PRN for MIGRAINE, (Reported) Cetirizine HCl 10 Mg Tablet, 10 MG PO DAILY, (Reported) Fluticasone Propionate 16 Gm [place].susp, 2 SPRAYS NS DAILY PRN for CONGESTION, (Reported) Ibuprofen 800 Mg Tablet, 800 MG PO TID PRN for PAIN, (Reported) Nitrofurantoin Monohyd/M-Cryst 100 Mg Capsule, 1 TAB PO BID Prescribed by: JOSSY QUACH on 06/23/16 1309 Norethindrone-E.estradiol-Iron 1 Each Tablet, 1 TAB PO DAILY, (Reported) Patient Home Medication List Home Medication List Reviewed: Yes (VANNESA CAPUTO,) Review of Systems Review of Systems Constitutional: No weakness EENTM: Blurred Vision (due to lack of sleep) Cardiovascular: Chest Pain Gastrointestinal: Abdominal Pain; Denies Blood Streaked Stools, Denies Diarrhea, Denies Nausea, Denies Vomiting Genitourinary: Denies Burning; Flank Pain Skin: no symptoms reported Psychiatric/Neurological: No Symptoms Reported Endocrine: No Symptoms Reported Hematologic/Lymphatic: No Symptoms Reported (VANNESA CAPUTO,) Past Jrgnjsn-Oevdcx-Gkeycy Hx Patient Social History Alcohol Beverage of Choice: Beer Recreational Drug Use: Yes Drug of Choice: meth and marijuana a few days ago Smoking Status: Current Everyday Smoker Type Used: Cigarettes (<0.5 ppd) Recent Hopitalizations: Yes ([facility] 2003) (VANNESA CAPUTO,) Immunizations Up To Date Tetanus Booster (TDap): Unknown PED Vaccines UTD: Yes (VANNESA CAPUTO,) Seasonal Allergies Seasonal Allergies: No (VANNESA CAPUTO,) Past Medical History Surgeries: Yes Eye Surgery (laser), Gallbladder, Nose (perforated septum repair), Orthopedic (bilateral carpal tunnel with repeat, bilateral shoulder, R ACL, trigger finger), Tubal Ligation Respiratory: Yes Asthma Cardiac: No Neurological: No : No Last Menstrual Period: Apr 17, 2020 Reproductive Disorders: No Female Reproductive Disorders: Denies Sexually Transmitted Disease: Yes (GENITAL WARTS AT AGE 19) HIV/AIDS: No Kidney Stones (in 2016) Gastroesophageal Reflux, Irritable Bowel Arthritis, Chronic Back Pain Loss of Vision: Denies Hearing Impairment: Denies Anxiety Adverse Reaction/Blood Tranf: No (VANNESA CAPUTO,) Family Medical History Alcoholism G8 BROTHER Physical Exam Vital Signs Vital Signs - First Documented 04/28/20 07:22 Temp 36.7 Pulse 84 Resp 14 B/P (MAP) 146/90 (108) Pulse Ox 98 O2 Delivery Room Air (IRWIN COREAS MD) Vital Signs Capillary Refill : (VANNESA CAPUTO,) Height/Weight/BMI Height: 5'3.00" Weight: 115lbs. 0.0oz. 52.398275pr; 20.4 BMI Method:Stated General Appearance: WD/WN, moderate distress HEENT: PERRL/EOMI Neck: non-tender, full range of motion Respiratory: lungs clear, no respiratory distress Cardiovascular: regular rate, rhythm, no murmur Gastrointestinal: normal bowel sounds, guarding, tenderness, other (positive Pete and Rovsing's signs) Extremities: normal range of motion Neurologic/Psychiatric: alert, normal mood/affect Skin: normal color, warm/dry (VANNESA CAPUTO,) Progress/Results/Core Measures Results/Orders Lab Results Laboratory Tests Test 04/28/20 07:19 04/28/20 08:21 Range/Units White Blood Count 8.8 4.3-11.0 10^3/uL Red Blood Count 4.29 L 4.35-5.85 10^6/uL Hemoglobin 13.3 11.5-16.0 G/DL Hematocrit 40 35-52 % Mean Corpuscular Volume 93 80-99 FL Mean Corpuscular Hemoglobin 31 25-34 PG Mean Corpuscular Hemoglobin Concent 34 32-36 G/DL Red Cell Distribution Width 13.4 10.0-14.5 % Platelet Count 379 130-400 10^3/uL Mean Platelet Volume 9.3 7.4-10.4 FL Neutrophils (%) (Auto) 48 42-75 % Lymphocytes (%) (Auto) 41 12-44 % Monocytes (%) (Auto) 9 0-12 % Eosinophils (%) (Auto) 1 0-10 % Basophils (%) (Auto) 1 0-10 % Neutrophils # (Auto) 4.3 1.8-7.8 X 10^3 Lymphocytes # (Auto) 3.6 1.0-4.0 X 10^3 Monocytes # (Auto) 0.8 0.0-1.0 X 10^3 Eosinophils # (Auto) 0.1 0.0-0.3 10^3/uL Basophils # (Auto) 0.1 0.0-0.1 10^3/uL Sodium Level 139 135-145 MMOL/L Potassium Level 3.7 3.6-5.0 MMOL/L Chloride Level 102 98-107 MMOL/L Carbon Dioxide Level 27 21-32 MMOL/L Anion Gap 10 5-14 MMOL/L Blood Urea Nitrogen 13 7-18 MG/DL Creatinine 0.72 0.60-1.30 MG/DL Estimat Glomerular Filtration Rate > 60 BUN/Creatinine Ratio 18 Glucose Level 102 70-105 MG/DL Calcium Level 9.8 8.5-10.1 MG/DL Corrected Calcium 9.7 8.5-10.1 MG/DL Total Bilirubin 0.3 0.1-1.0 MG/DL Aspartate Amino Transf (AST/SGOT) 23 5-34 U/L Alanine Aminotransferase (ALT/SGPT) 27 0-55 U/L Alkaline Phosphatase 98 40-136 U/L C-Reactive Protein High Sensitivity 0.24 0.00-0.50 MG/DL Total Protein 8.0 6.4-8.2 GM/DL Albumin 4.1 3.2-4.5 GM/DL Lipase 40 8-78 U/L Serum Test, Qualitative NEGATIVE NEGATIVE Urine Color YELLOW Urine Clarity SL CLOUDY Urine pH 8.0 5-9 Urine Specific [place] 1.015 L 1.016-1.022 Urine Protein NEGATIVE NEGATIVE Urine Glucose (UA) NEGATIVE NEGATIVE Urine Ketones NEGATIVE NEGATIVE Urine Nitrite NEGATIVE NEGATIVE Urine Bilirubin NEGATIVE NEGATIVE Urine Urobilinogen 0.2 < = 1.0 MG/DL Urine Leukocyte Esterase NEGATIVE NEGATIVE Urine RBC (Auto) NEGATIVE NEGATIVE Urine RBC NONE /HPF Urine WBC RARE /HPF Urine Squamous Epithelial Cells 5-10 /HPF Urine Crystals NONE /LPF Urine Amorphous Sediment LARGE MARK PHOSPHATE H /LPF Urine Bacteria TRACE /HPF Urine Casts NONE /LPF Urine Mucus NEGATIVE /LPF Urine Culture Indicated NO Urine Opiates Screen NEGATIVE NEGATIVE Urine Oxycodone Screen NEGATIVE NEGATIVE Urine Methadone Screen NEGATIVE NEGATIVE Urine Propoxyphene Screen NEGATIVE NEGATIVE Urine Barbiturates Screen NEGATIVE NEGATIVE Ur Tricyclic Antidepressants Screen NEGATIVE NEGATIVE Urine Phencyclidine Screen NEGATIVE NEGATIVE Urine Amphetamines Screen POSITIVE H NEGATIVE Urine Methamphetamines Screen NEGATIVE NEGATIVE Urine Benzodiazepines Screen NEGATIVE NEGATIVE Urine Cocaine Screen NEGATIVE NEGATIVE Urine Cannabinoids Screen NEGATIVE NEGATIVE (IRWIN COREAS MD) My Orders Orders - IRWIN COREAS MD Ua Culture If Indicated (04/28/20 06:57) Ed Iv/Invasive Line Start (04/28/20 07:30) Ns Iv 1000 Ml (Sodium Chloride 0.9%) (04/28/20 07:30) Cbc With Automated Diff (04/28/20 07:30) Comprehensive Metabolic Panel (04/28/20 07:30) Hs C Reactive Protein (04/28/20 07:30) Lipase (04/28/20 07:30) Drug Screen Stat (Urine) (04/28/20 07:30) Hcg,Qualitative Serum (04/28/20 07:38) Fentanyl Injection (Sublimaze Injection (04/28/20 08:00) Fentanyl Injection (Sublimaze Injection (04/28/20 08:45) Ct Abdomen/Pelvis W (04/28/20 09:03) Iohexol Injection (Omnipaque 350 Mg/Ml 1 (04/28/20 09:15) Received Contrast (Hold Metformin- Contr (04/28/20 09:15) Ns (Ivpb) (Sodium Chloride 0.9% Ivpb Bag (04/28/20 09:15) Ketorolac Injection (Toradol Injection) (04/28/20 10:15) Fentanyl Injection (Sublimaze Injection (04/28/20 12:00) Hydrocodone/Apap 5/325 Tablet (Lortab 5 (04/28/20 12:15) (IRWIN COREAS MD) Medications Given in ED Current Medications Medications Dose Ordered Sig/Jesus Route Start Time Stop Time Status Last Admin Dose Admin Fentanyl Citrate 50 mcg ONCE ONCE IVP 04/28/20 08:00 04/28/20 08:01 DC 04/28/20 07:59 50 MCG Fentanyl Citrate 50 mcg ONCE ONCE IVP 04/28/20 08:45 04/28/20 08:46 DC 04/28/20 08:44 50 MCG Ketorolac Tromethamine 30 mg ONCE ONCE IVP 04/28/20 10:15 04/28/20 10:16 DC 04/28/20 10:26 30 MG Sodium Chloride 1,000 ml @ 0 mls/hr Q0M ONCE IV 04/28/20 07:30 04/28/20 07:38 DC 04/28/20 07:45 0 MLS/HR (IRWIN COREAS MD) Vital Signs/I&O 04/28/20 07:22 Temp 36.7 Pulse 84 Resp 14 B/P (MAP) 146/90 (108) Pulse Ox 98 O2 Delivery Room Air (IRWIN COREAS MD) Departure Impression Primary Impression: Right-sided abdominal pain of unknown cause Disposition: HOME, SELF-CARE Condition: Improved Departure-Patient Inst. Decision time for Depature: 12:09 (IRWIN COREAS MD) Referrals: KANDIS ROSALES MD (PCP/Family) Primary Care Physician EMMETT MAYORGA DO Patient Instructions: Acute Abdomen (Belly Pain), Adult (DC) Add. Discharge Instructions: Contact Dr. Mayorga's office first thing tomorrow morning. Arrange a follow-up time in his clinic. Adhere to a clear liquid diet until you're seen by Dr. Mayorga. You may take ibuprofen up to 600 mg every 6 hours as needed for pain. Use hydrocodone as prescribed for pain not controlled by hydrocodone. Use Zofran (ondansetron) as prescribed for nausea or vomiting. Return to the emergency room if you're having worsening symptoms despite following these measures or if you develop new symptoms such as fever, uncontrolled vomiting, etc. All discharge instructions reviewed with patient and/or family. Voiced understanding. Scripts Ondansetron (Ondansetron Odt) 4 Mg Tab.rapdis 4 MG SL Q4H, #5 TAB Prov: IRWIN COREAS MD 04/28/20 Copy Copies To 1: EMMETT MAYORGA DO VANNESA CAPUTO, Apr 28, 2020 07:25 IRWIN COREAS MD Apr 28, 2020 12:11
[2020-04-28] MEDS ORDERED: NS IV 1000 ML 1,000 ML IV ONE (07:30)
[2020-04-28 07:42] LABS: BASOPHILS # (AUTO) 0.1 10^3/uL (0.0-0.1); BASOPHILS % (AUTO) 1 % (0-10); EOSINOPHILS # (AUTO) 0.1 10^3/uL (0.0-0.3); EOSINOPHILS % (AUTO) 1 % (0-10); HEMATOCRIT 40 % (35-52); HEMOGLOBIN 13.3 G/DL (11.5-16.0); LYMPHOCYTES # (AUTO) 3.6 X 10^3 (1.0-4.0); LYMPHOCYTES % (AUTO) 41 % (12-44); MEAN CORPUSCULAR HEMOGLOBIN 31 PG (25-34); MEAN CORPUSCULAR HGB CONC 34 G/DL (32-36); MEAN CORPUSCULAR VOLUME 93 FL (80-99); MEAN PLATELET VOLUME 9.3 FL (7.4-10.4); MONOCYTES # (AUTO) 0.8 X 10^3 (0.0-1.0); MONOCYTES % (AUTO) 9 % (0-12); NEUTROPHILS # (AUTO) 4.3 X 10^3 (1.8-7.8); NEUTROPHILS % (AUTO) 48 % (42-75); PLATELET COUNT 379 10^3/uL (130-400); RED CELL DISTRIBUTION WIDTH 13.4 % (10.0-14.5); WHITE BLOOD COUNT 8.8 10^3/uL (4.3-11.0)
[2020-04-28 07:44] LABS: ALBUMIN 4.1 GM/DL (3.2-4.5); CHLORIDE 102 MMOL/L (98-107); POTASSIUM 3.7 MMOL/L (3.6-5.0); SODIUM 139 MMOL/L (135-145)
[2020-04-28 07:45] LABS: CALCIUM 9.8 MG/DL (8.5-10.1)
[2020-04-28 07:47] LABS: GLUCOSE 102 MG/DL (70-105)
[2020-04-28 07:48] LABS: CARBON DIOXIDE 27 MMOL/L (21-32)
[2020-04-28 07:49] LABS: BILIRUBIN,TOTAL 0.3 MG/DL (0.1-1.0)
[2020-04-28 07:50] LABS: ALKALINE PHOSPHATASE 98 U/L (40-136); CREATININE SERUM 0.72 MG/DL (0.60-1.30); GFR ESTIMATED > 60
[2020-04-28 07:51] LABS: BUN/CREATININE RATIO 18
[2020-04-28 07:53] LABS: ALANINE AMINOTRANSFERASE 27 U/L (0-55)
[2020-04-28 07:54] LABS: LIPASE 40 U/L (8-78)
[2020-04-28] MEDS ORDERED: fentaNYL INJECTION 100 MCG/2 ML AMP IVP ONE ×3 (08:00→12:00)
[2020-04-28 08:34] LABS: BILIRUBIN,URINE NEGATIVE (NEGATIVE); CLARITY,URINE SL CLOUDY; COLOR,URINE YELLOW; GLUCOSE, URINE (UA) NEGATIVE (NEGATIVE); KETONES,URINE NEGATIVE (NEGATIVE); LEUKOCYTE ESTERASE ,URINE NEGATIVE (NEGATIVE); NITRITE,URINE NEGATIVE (NEGATIVE); PROTEIN,URINE NEGATIVE (NEGATIVE)
[2020-04-28 08:42] LABS: AMORPHOUS SEDIMENT,UR LARGE AMOR PHOSPHATE /LPF; BACTERIA,URINE TRACE /HPF; WBC,URINE RARE /HPF
[2020-04-28 08:48] LABS: AMPHETAMINE SCREEN, URINE POSITIVE (NEGATIVE); BARBITURATE SCREEN URINE NEGATIVE (NEGATIVE); BENZODIAZEPINES SCREEN URINE NEGATIVE (NEGATIVE); CANNABINOID SCREEN, URINE NEGATIVE (NEGATIVE); COCAINE SCREEN URINE NEGATIVE (NEGATIVE); METHADONE STAT NEGATIVE (NEGATIVE); METHAMPHETAMINE SCREEN URINE S NEGATIVE (NEGATIVE); OPIATE SCREEN URINE NEGATIVE (NEGATIVE); OXYCODONE STAT NEGATIVE (NEGATIVE); PROPOXYPHENE STAT NEGATIVE (NEGATIVE); TRICYCLIC ANTIDEPRESSANTS SCRE NEGATIVE (NEGATIVE)
--- NOTE | 2020-04-28 08:49 | NUR ---
Patient is resting comfortably post medication admin.
[2020-04-28] MEDS ORDERED: HOLD METFORMIN - RECEIVED CONTRAST 20 ML VIAL IV SCH (09:15)
[2020-04-28] MEDS ORDERED: IOHEXOL 350 MG/ML 100 ML (OMNIPAQUE 350) VIAL IV ONE (09:15)
[2020-04-28] MEDS ORDERED: NS 100 ML (IVPB) BAG IV ONE (09:15)
--- NOTE | 2020-04-28 10:05 | Diagnostic Imaging Report ---
CT ABDOMEN/PELVIS W TECHNIQUE: Multiple contiguous axial images were obtained through the abdomen and pelvis after administration of intravenous contrast. All CT scans use one or more of the following dose optimizing techniques: automated exposure control, MA and/or KvP adjustment based on a patient size and exam type, or iterative reconstruction. INDICATION: Right-sided flank pain COMPARISON: CT abdomen and pelvis of 06/22/2016 FINDINGS: Lower chest: The lung bases are clear. No pericardial or pleural effusion. Peritoneum: No free intraperitoneal air or fluid. Liver and biliary system: The liver is normal. Cholecystectomy. No pathologic biliary duct dilatation. Spleen and Pancreas: Spleen is normal. The pancreas enhances normally without mass lesion or peripancreatic inflammatory changes. Adrenals: Normal. tract: The kidneys enhance normally without suspicious mass or obstruction. Urinary bladder is distended without wall thickening. No renal or ureteral calculi. Uterus and ovaries are normal in appearance. GI tract: Stomach is partially filled with fluid and there is no wall thickening. No bowel obstruction. No pericolonic inflammatory changes. Appendix is not seen with certainty though there are no features to suggest acute appendicitis. Vasculature and Lymph nodes: Normal caliber aorta. No abdominal or pelvic lymphadenopathy. Musculoskeletal: No concerning osseous lesion. IMPRESSION: 1. No acute obstructive or inflammatory process. 2. No urinary tract calculi. 3. Appendix is not seen and if patient has not undergone appendectomy, there are no imaging features that would suggest acute appendicitis. Dictated by: Dictated on workstation # [id number]
[2020-04-28] MEDS ORDERED: KETOROLAC 30 MG/ML VIAL IVP ONE (10:15)
[2020-04-28] MEDS ORDERED: HYDR-83 PO (12:13)
[2020-04-28] MEDS ORDERED: ONDA4TAB11 SL (12:13)
[2020-04-28] MEDS ORDERED: HYDROcodone/APAP 5 MG/325 MG (LORTAB) TAB PO ONE (12:15)
[2020-04-28 12:24] VITALS: BP 120/86
== END 2020-04-28 12:26 | disposition home or self-care (01) ==
LOC: EDUNIT# 06:53 → ER 06:55
DX: R10.31 Right lower quadrant pain (principal); J45.909 Unspecified asthma, uncomplicated; F41.9 Anxiety disorder, unspecified; G89.29 Other chronic pain; M54.9 Dorsalgia, unspecified; F17.210 Nicotine dependence, cigarettes, uncomplicated; Z87.19 Personal history of other diseases of the digestive system; Z79.1 Long term (current) use of non-steroidal anti-inflammatories (NSAID); Z79.51 Long term (current) use of inhaled steroids
CPT/HCPCS: 36415; 74177; 80053; 80306; 81000; 83690; 84703; 85025; 86141

== ENCOUNTER → 2020-04-29 | Outpatient (CLI) | payer SELFPAY ==
[~2020-04-29] MED LIST changes: +HYDR-83 PO; +ONDA4TAB11 SL
[2020-04-29 15:22] LABS: HEMOGLOBIN 12.2 G/DL (11.5-16.0); MEAN PLATELET VOLUME 9.1 FL (7.4-10.4); RED CELL DISTRIBUTION WIDTH 13.1 % (10.0-14.5); WHITE BLOOD COUNT 8.4 10^3/uL (4.3-11.0)
[2020-04-29 15:36] LABS: ALBUMIN 3.7 GM/DL (3.2-4.5); CHLORIDE 107 MMOL/L (98-107); SODIUM 137 MMOL/L (135-145)
[2020-04-29 15:38] LABS: CALCIUM 8.7 MG/DL (8.5-10.1)
[2020-04-29 15:39] LABS: GLUCOSE 80 MG/DL (70-105)
[2020-04-29 15:40] LABS: CARBON DIOXIDE 21 MMOL/L (21-32)
[2020-04-29 15:41] LABS: BILIRUBIN,TOTAL 0.4 MG/DL (0.1-1.0)
[2020-04-29 15:42] LABS: ALKALINE PHOSPHATASE 89 U/L (40-136); CREATININE SERUM 0.62 MG/DL (0.60-1.30); GFR ESTIMATED > 60
[2020-04-29 15:44] LABS: BUN/CREATININE RATIO 13
[2020-04-29 15:45] LABS: ALANINE AMINOTRANSFERASE 26 U/L (0-55)
[2020-04-29 15:48] LABS: AMPHETAMINE SCREEN, URINE POSITIVE (NEGATIVE); BARBITURATE SCREEN URINE NEGATIVE (NEGATIVE); BENZODIAZEPINES SCREEN URINE NEGATIVE (NEGATIVE); CANNABINOID SCREEN, URINE NEGATIVE (NEGATIVE); COCAINE SCREEN URINE NEGATIVE (NEGATIVE); METHADONE STAT NEGATIVE (NEGATIVE); METHAMPHETAMINE SCREEN URINE S NEGATIVE (NEGATIVE); OPIATE SCREEN URINE NEGATIVE (NEGATIVE); OXYCODONE STAT NEGATIVE (NEGATIVE); PROPOXYPHENE STAT NEGATIVE (NEGATIVE); TRICYCLIC ANTIDEPRESSANTS SCRE NEGATIVE (NEGATIVE)
--- NOTE | 2020-04-29 17:03 | Diagnostic Imaging Report ---
PROCEDURE: US Abdomen, limited. TECHNIQUE: Multiple realtime grayscale images were obtained over the abdomen in various projections. INDICATION: Right lower quadrant abdominal pain. Focused ultrasonography is performed in right lower quadrant. Evaluation is limited by overlying bowel. No definite non-compressible blind-ending tubular structure is identified to indicate abnormal appendix. No organized fluid collection is seen. IMPRESSION: Limited study without definite identification of the appendix. Dictated by: Dictated on workstation # [id number]
--- NOTE | 2020-04-29 18:03 | Diagnostic Imaging Report ---
PROCEDURE: US Non-ob pelvis comp/trans. TECHNIQUE: Multiple realtime grayscale images were obtained of the pelvis in various projections endovaginally. Transabdominal imaging was also performed. INDICATION: Irregular menstrual cycle. COMPARISON is made to examination of one day earlier. The uterus is anteverted measuring 7.7 x 4.4 x 4.4 cm. Note is made of an approximately 1.9 cm cyst at the level of the cervix. There is normal endometrial thickness of 0.5 cm. There is blood flow to both ovaries without evidence of solid adnexal mass. A 1.9 cm cyst is present within the left ovary, inferiorly. There is a small amount of pelvic free fluid. IMPRESSION: 1. Probable dominant follicle in the left ovary with a small amount of free fluid, possibly related to cyst leakage. If indicated, a follow-up study could be performed to document resolution. Dictated by: Dictated on workstation # [id number]
== END ==
LOC: RAD 15:02
PROVIDERS: ATTEND Surgery
DX: N92.6 Irregular menstruation, unspecified (principal); R10.31 Right lower quadrant pain
CPT/HCPCS: 36415; 76705; 76830; 76856; 80053; 80306; 85027

== ENCOUNTER 2021-12-02 14:26 | Emergency (ER) | payer OTHER ==
[~2021-12-02] VITALS: Ht 157 cm; Wt 52.0 kg
[~2021-12-02 14:26] MED LIST changes: +ACHD5005 PO; +BUTA-235 PO; -BUTA1TAB9 PO; -HYDR-83 PO; -OMEP40CA27 PO; +OMEP40CA6 PO; -OXYC-471 PO; +OXYC1TAB11 PO
[2021-12-02] MEDS ORDERED: oxyCODONE/APAP 5/325MG (PERCOCET 5) TABLET PO ONE (15:00)
[2021-12-02] MEDS ORDERED: TETANUS,DIPTH,PERTUSS P/F (BOOSTRIX) 0.5 ML VIAL IM ONE (15:00)
[2021-12-02] MEDS ORDERED: CEPHALEXIN 250 MG (KEFLEX) CAP PO SCH (15:00)
[2021-12-02] MEDS ORDERED: CEPH500T PO (15:05)
[2021-12-02] MEDS ORDERED: OXYC1TAB87 PO (15:05)
--- NOTE | 2021-12-02 15:05 | ED Upper Extremity ---
General Chief Complaint: Laceration Stated Complaint: L MIDDLE/RING FINGER LAC Nursing Triage Note: PT STATES SHE WAS RUNNING A TABLE SAW AND A BOARD KICKED BACK AND HER THIRD AND FOURTH DIGITS ON LT HAND BOTH GOT CUT ON THE TIPS. REPAIR NEEDED. PT NEEDS A TETANUS SHOT Source: patient Exam Limitations: no limitations (MAI OLSEN APRN) History of Present Illness Date Seen by Provider: Dec 02, 2021 Time Seen by Provider: 14:59 Initial Comments to ER with a table saw injury to the left middle and ring finger at the pad. Unknown when last tetanus vaccine was. This occurred just prior to arrival. She is right-hand dominant. Onset: just prior to arrival Severity: moderate Pain/Injury Location: left 3rd finger, left 4th finger Method of Injury: direct blow Modifying Factors: Improves With Movement (MAI OLSEN APRN) Allergies and Home Medications Allergies Coded Allergies: NKANo Known Allergies (Verified Allergy, Unknown, 09/29/08) Patient Home Medication List Home Medication List Reviewed: Yes (MAI OLSEN APRN) Albuterol Sulfate (Proair Hfa) 8.5 Gm Hfa.aer.ad, 2 PUFF INH Q4H PRN for SHORTNESS OF BREATH, (Reported) Entered as Reported by: DIAZ PADRON on 06/20/16 1632 Alprazolam (Alprazolam) 0.5 Mg Tablet, 0.5 MG PO TID PRN for ANXIETY, (Reported) Entered as Reported by: DIAZ PADRON on 06/20/16 1632 Baclofen (Baclofen) 20 Mg Tablet, 20 MG PO TID PRN for MUSCLE SPASMS, (Reported) Entered as Reported by: DIAZ PADRON on 06/20/16 1632 Butalb/Acetaminophen/Caffeine (Rlroms-Xypszfot-Dque 50-325-40) 1 Each Tablet, 1- 2 TAB PO BID PRN for MIGRAINE, (Reported) Entered as Reported by: DIAZ PADRON on 06/20/16 1632 Cephalexin (Cephalexin) 500 Mg Tablet, 500 MG PO TID Prescribed by: MAI OLSEN on 12/02/21 1505 Cetirizine HCl (Cetirizine HCl) 10 Mg Tablet, 10 MG PO DAILY, (Reported) Entered as Reported by: DIAZ PADRON on 06/20/16 1632 Fluticasone Propionate (Fluticasone Propionate) 16 Gm [place].susp, 2 SPRAYS NS DAILY PRN for CONGESTION, (Reported) Entered as Reported by: DIAZ PADRON on 06/20/16 1632 Hydrocodone/Acetaminophen (Hydrocodone-Acetamin 5-325 mg) 1 Each Tablet, 1 EACH PO Q4H PRN for NAUSEA/VOMITING Prescribed by: IRWIN CARRENO on 04/28/20 1213 Ibuprofen (Ibuprofen) 800 Mg Tablet, 800 MG PO TID PRN for PAIN, (Reported) Entered as Reported by: DIAZ PADRON on 06/20/16 1632 Nitrofurantoin Monohyd/M-Cryst (Macrobid 100 mg Capsule) 100 Mg Capsule, 1 TAB PO BID Prescribed by: JOSSY QUACH on 06/23/16 1309 Norethindrone-E.estradiol-Iron (Lo Loestrin Fe 1-10 Tablet) 1 Each Tablet, 1 TAB PO DAILY, (Reported) Entered as Reported by: DIAZ PADRON on 06/20/16 1632 Ondansetron (Ondansetron Odt) 4 Mg Tab.rapdis, 4 MG SL Q4H Prescribed by: IRWIN CARRENO on 04/28/20 1213 Oxycodone HCl/Acetaminophen (Percocet 5-325 mg Tablet) 1 Each Tablet, 1 TAB PO Q4H Prescribed by: MAI OLSEN on 12/02/21 1505 Review of Systems Constitutional: see HPI EENTM: see HPI Respiratory: no symptoms reported Cardiovascular: no symptoms reported Genitourinary: no symptoms reported Musculoskeletal: no symptoms reported Skin: no symptoms reported Psychiatric/Neurological: No Symptoms Reported (MAI OLSEN APRN) Past Owcmjws-Dwjgdj-Afxdvb Hx Patient Social History Tobacco Use?: Yes Tobacco type used: Cigarettes Smoking Status: Current Everyday Smoker Substance use?: Yes Substance type: Other Alcohol Use?: No (MAI OLSEN APRN) Immunizations Up To Date Tetanus Booster (TDap): Unknown PED Vaccines UTD: Yes Second COVID19 Vaccination Miguel: 10/30/21 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: [employer] (MAI OLSEN APRN) Seasonal Allergies Seasonal Allergies: No (MAI OLSEN APRN) Past Medical History Surgery/Hospitalization HX: CARPEL TUNNEL BOTH HANDS, NOSE SURGERY, EYE SURGERY, BILAT SHOULDER, TUBAL LIGATION Surgeries: Yes Eye Surgery, Gallbladder, Nose, Orthopedic, Tubal Ligation Respiratory: Yes Asthma Cardiac: No Neurological: No Reproductive Disorders: No Female Reproductive Disorders: Denies Sexually Transmitted Disease: Yes (GENITAL WARTS AT AGE 19) HIV/AIDS: No Kidney Stones Gastrointestinal: No Gastroesophageal Reflux, Irritable Bowel Musculoskeletal: Yes Arthritis, Chronic Back Pain Endocrine: No Loss of Vision: Denies Hearing Impairment: Denies Cancer: No Psychosocial: Yes Anxiety Integumentary: No Blood Disorders: No Adverse Reaction/Blood Tranf: No (MAI OLSEN APRN) Family Medical History Alcoholism G8 BROTHER Physical Exam Vital Signs Vital Signs - First Documented 12/02/21 14:48 Temp 36.2 Pulse 103 Resp 20 B/P (MAP) 132/115 (121) Pulse Ox 98 O2 Delivery Room Air (IRWIN COREAS MD) Vital Signs Capillary Refill : Less Than 3 Seconds (MAI OLSEN APRN) Height, Weight, BMI Height: 5'3.00" Weight: 115lbs. 0.0oz. 52.132310td; 21.00 BMI Method:Stated General Appearance: WD/WN, no apparent distress HEENT: PERRL/EOMI, normal ENT inspection Neck: non-tender, full range of motion Respiratory: no respiratory distress, no accessory muscle use Gastrointestinal: normal bowel sounds, non tender, soft Elbow/Forearm: normal inspection, non-tender Wrist: Yes normal inspection, Yes non-tender Hand: Left (To the pad of the left middle and ring finger is a gouge from the table saw blade. There is nothing to suture here. There is no nail or nailbed injury. Minimal bleeding. We will get an x-ray to confirm no bony involvement, give her some antibiotics, tetanus update and cover these with Xeroform and then tube gauze.) Neurologic/Psychiatric: alert, normal mood/affect, oriented x 3 Skin: normal color, warm/dry (MAI OLSEN APRN) Progress/Results/Core Measures Results/Orders Blood Pressure Mean: 121 Departure Communication (Admissions) Family Conversation wounds were cleaned and then covered with Xeroform and tube gauze. I will have her keep these on clean and dry until she returns for follow-up. I told her to come back here 12/05/2021 for dressing change and wound reevaluation. NAME: YIMI BLAND [facility] REC#: [id number] PT STATUS: REG ER : 1970 PHYSICIAN: MAI OLSEN APRN ADMIT DATE: 12/02/21/ER Draft Date of Exam:12/02/21 FINGER(S) INDICATION: Table saw injury to the third finger. TIME OF EXAM: 3:18 p.m. FINDINGS: Three views of the left third finger were obtained. There is soft tissue injury of the tip of the third finger with partial soft tissue amputation. The bony structures are intact. Distal phalanx is intact. There are no fractures. IMPRESSION: There is a soft tissue injury of the tip of the third finger. No acute bony abnormality is detected. Dictated on workstation # [id number] Dict: 12/02/21 1519 Trans: 12/02/21 1523 [id number] Interpreted by: RISHI GUNDERSON MD Electronically signed by: (MAI OLSEN APRN) Impression Primary Impression: Fingertip avulsion Disposition: 01 HOME, SELF-CARE Condition: Stable Departure-Patient Inst. Decision time for Depature: 15:03 (MAI OLSEN APRN) Referrals: EMMETT MAYORGA,LOCAL PHYSICIAN (PCP) Primary Care Physician Patient Instructions: Wound Care ED Add. Discharge Instructions: 1. Return to ER for any concerns. Follow-up with Dr. Mayorga for bandage change and wound check. Take the antibiotics and pain medication as directed. All discharge instructions reviewed with patient and/or family. Voiced understanding. Scripts Oxycodone HCl/Acetaminophen (Percocet 5-325 mg Tablet) 1 Each Tablet 1 TAB PO Q4H for PAIN-MODERATE MDD 6 TABS for 7 Days, #14 TAB Prov: MAI OLSEN APRN 12/02/21 Cephalexin (Cephalexin) 500 Mg Tablet 500 MG PO TID, #21 TAB Prov: MAI OLSEN APRN 12/02/21 ATTENDING PHYSICIAN NOTE: I was physically present as attending physician in the emergency department during the care of this patient, but I was not directly involved in the decision making or delivery of care for this patient. (IRWIN COREAS MD) Copy Copies To 1: EMMETT MAYORGA PETER J APRN Dec 02, 2021 15:05 IRWIN COREAS MD Dec 03, 2021 21:10
--- NOTE | 2021-12-02 15:24 | Diagnostic Imaging Report ---
INDICATION: Table saw injury to the third finger. TIME OF EXAM: 3:18 p.m. FINDINGS: Three views of the left third finger were obtained. There is soft tissue injury of the tip of the third finger with partial soft tissue amputation. The bony structures are intact. Distal phalanx is intact. There are no fractures. IMPRESSION: There is a soft tissue injury of the tip of the third finger. No acute bony abnormality is detected. Dictated by: Dictated on workstation # [id number]
[2021-12-02 15:44] VITALS: BP 130/95
== END 2021-12-02 15:44 | disposition home or self-care (01) ==
LOC: EDUNIT# 14:26 → ER 14:28
DX: S61.303A Unspecified open wound of left middle finger with damage to nail, initial encounter (principal); S61.304A Unspecified open wound of right ring finger with damage to nail, initial encounter; J45.909 Unspecified asthma, uncomplicated; F41.9 Anxiety disorder, unspecified; M54.9 Dorsalgia, unspecified; G89.29 Other chronic pain; F17.210 Nicotine dependence, cigarettes, uncomplicated; Z79.891 Long term (current) use of opiate analgesic; Z79.899 Other long term (current) drug therapy; W31.2XXA Contact with powered woodworking and forming machines, initial encounter
CPT/HCPCS: 73140; 90715